=== PATIENT | female | born 2000 | race Two or more races ===

== ENCOUNTER 2022-06-09 17:54 | Emergency (ER) | payer OTHER ==
[~2022-06-09] VITALS: Ht 157.5 cm; Wt 72.6 kg
[2022-06-09] MEDS ORDERED: SYNTHROID50 MCG (18:49)
== END 2022-06-09 21:00 | disposition home or self-care (01) ==
LOC: ER 17:54
DX: U07.1 COVID-19 (principal); K29.70 Gastritis, unspecified, without bleeding